=== PATIENT | female | born 1990 | race Two or more races ===

== ENCOUNTER 2018-12-10 15:55 | Inpatient (IN) | payer OTHER ==
[~2018-12-10] VITALS: Ht 157.5 cm; Wt 95.3 kg
[~2018-12-10 15:55] MED LIST: COZAAR100 MG PO; GLUCOPHAGE XR500 MG PO; TOPROL XL50 M1 PO; ZOCOR20 MG PO
[2018-12-27] MEDS ORDERED: PANTOPRAZOLE SO40 MG PO (11:24)
[2018-12-27] MEDS ORDERED: OXYC1TAB9 PO (11:24)
[2018-12-27] MEDS ORDERED: ACIDOPHILUS-PE1 EAC2 PO (11:24)
[2018-12-27] MEDS ORDERED: POLY119PG PO (11:25)
== END 2018-12-27 12:34 | disposition home or self-care (01) | DRG 330 ==
LOC: O/R 12-21 05:25 → SURH 12-21 05:25
PROVIDERS: ADMIT Surgery
PROC: 0WUF47Z Supplement Abdominal Wall with Autologous Tissue Substitute, Percutaneous Endoscopic Approach (ICD-10-PCS; 2018-12-21)
PROC: 0DJD8ZZ Inspection of Lower Intestinal Tract, Via Natural or Artificial Opening Endoscopic (ICD-10-PCS; 2018-12-21)
PROC: 0DTN4ZZ Resection of Sigmoid Colon, Percutaneous Endoscopic Approach (ICD-10-PCS; principal; 2018-12-21 08:45)
DX: K57.32 Diverticulitis of large intestine without perforation or abscess without bleeding (principal); N32.1 Vesicointestinal fistula; K66.0 Peritoneal adhesions (postprocedural) (postinfection); E11.9 Type 2 diabetes mellitus without complications; E78.49 Other hyperlipidemia

== ENCOUNTER 2018-12-14 10:44 | Day surgery (SDC) | payer OTHER | END 2018-12-14 16:30 | disposition home or self-care (01) | LOC: AMB-ENDOS 10:44 | DX: K64.4 Residual hemorrhoidal skin tags (principal) ==